=== PATIENT | female | born 1990 | race Caucasian/White ===

== ENCOUNTER 2017-11-10 16:01 | Emergency (ER) | END 2017-11-10 19:14 | disposition home or self-care (01) ==

== ENCOUNTER 2019-02-02 20:26 | Emergency (ER) | payer SELFPAY ==
[~2019-02-02] VITALS: Ht 157.5 cm; Wt 60.3 kg
[~2019-02-02 20:26] MED LIST: CIPR500T4 PO; HYDR-3498 PO; IBUP-1542 PO; IBUP-1561 PO; NAPR-985 PO
[2019-02-02 20:30] VITALS: BP 130/83; PULSE 112; RESP 20; Ht 157.5 cm; Wt 60.3 kg
== END 2019-02-03 00:34 | disposition left against medical advice (07) ==
LOC: E/R 20:26
DX: Z53.21 Procedure and treatment not carried out due to patient leaving prior to being seen by health care provider (principal)